=== PATIENT | male | born 1990 | race Caucasian/White ===

== ENCOUNTER 2017-07-21 18:15 | Emergency (ER) | payer MEDICAID ==
[~2017-07-21] VITALS: Ht 172.7 cm; Wt 86.0 kg
[2017-07-21 18:20] VITALS: BP 142/88
[2017-07-21] MEDS ORDERED: DEXAMETHASONE 4 MG TABLET PO ONE (19:00)
[2017-07-21] MEDS ORDERED: HYDROcodone/APAP 7.5-325MG/15ML UDC PO ONE (19:00)
[2017-07-21] MEDS ORDERED: ACETAMINOPHEN 500 MG TABLET PO ONE (19:00)
[2017-07-21] MEDS ORDERED: DEXAMETHASONE 4 MG/ML, 5ML ONE (19:12)
[2017-07-21] MEDS ORDERED: ACETAMINOPHEN 500 MG TABLET ONE (19:12)
== END 2017-07-21 19:21 | disposition home or self-care (01) ==
LOC: ED 19:00
DX: J02.0 Streptococcal pharyngitis (principal); H92.02 Otalgia, left ear
CPT/HCPCS: 99283

== ENCOUNTER 2018-06-16 22:09 | Emergency (ER) | payer MEDICAID ==
[~2018-06-16] VITALS: Ht 172.7 cm; Wt 69.1 kg
[2018-06-16 22:21] VITALS: BP 123/70
== END 2018-06-16 22:47 | disposition left against medical advice (07) ==
LOC: ED 22:42
DX: R68.89 Other general symptoms and signs (principal); Z53.21 Procedure and treatment not carried out due to patient leaving prior to being seen by health care provider

== ENCOUNTER 2019-04-28 22:40 | Emergency (ER) | payer MEDICAID ==
[~2019-04-28] VITALS: Ht 172.7 cm; Wt 65.4 kg
[2019-04-28 22:42] VITALS: BP 136/91
[2019-04-28] MEDS ORDERED: DIPH,PERTUSS(ACELL),TET VAC/PF 0.5 ML IM-VACC ONE ×2 (23:21→23:30)
== END 2019-04-28 23:34 | disposition home or self-care (01) ==
LOC: ED 23:19
DX: S80.811A Abrasion, right lower leg, initial encounter (principal); L03.115 Cellulitis of right lower limb; F41.1 Generalized anxiety disorder; F31.9 Bipolar disorder, unspecified; V19.9XXA Pedal cyclist (driver) (passenger) injured in unspecified traffic accident, initial encounter; Y93.89 Activity, other specified; Y92.410 Unspecified street and highway as the place of occurrence of the external cause; Y99.8 Other external cause status
CPT/HCPCS: 90471; 90715; 99283

== ENCOUNTER 2019-09-21 23:19 | Emergency (ER) | payer MEDICAID ==
[~2019-09-21] VITALS: Ht 172.7 cm; Wt 68.1 kg
--- NOTE | 2019-09-21 23:50 | NUR ---
PT C/O RIGHT ARM ABCESS, REPORTS SKIN POPPING METH X2 DAYS AGO. PT HAS MULTIPLE SKIN POPPING SITES THAT ARE OPEN, RED, WARM AND TENDER TO TOUCH. PT DENIES ANY OTHER C/O AT THIS TIME. PT PLACED ON MONITORING, CALL LIGHT WITHIN REACH, ALL SAFETY MEASURES IN PLACE.
[2019-09-22] MEDS ORDERED: IBUPROFEN 600 MG TABLET PO ONE
[2019-09-22] MEDS ORDERED: OXYcodone/APAP 5/325MG TABLET PO ONE
[2019-09-22] MEDS ORDERED: CLINDAMYCIN 300 MG CAPSULE PO ONE
[2019-09-22] MEDS ORDERED: LIDOCAINE 2%, 20ML SQ ONE
[2019-09-22] MEDS ORDERED: CLINDAMYCIN 300 MG CAPSULE ONE (00:01)
[2019-09-22] MEDS ORDERED: OXYcodone/APAP 5/325MG TABLET ONE (00:01)
[2019-09-22] MEDS ORDERED: IBUPROFEN 600 MG TABLET ONE (00:01)
--- NOTE | 2019-09-22 00:18 | NUR ---
PT PROVIDED CRACKERS AND JUICE UPON REQUEST.
--- NOTE | 2019-09-22 00:42 | NUR ---
ERP IN ROOOM APPLYING LIDOCAINE AT THIS TIME. PT TOLERATING WELL. VSS.
--- NOTE | 2019-09-22 01:07 | NUR ---
I&D COMPLETED BY DR. ARNOLD. PT TOLERATED WELL. X2 WOUNDS ON R ARM PACKED WITH STERILE GAUZE PACKING. PT EDUCATED TO RETURN TO ED TO HAVE PACKING REMOVED. PT EDUCATED TO NO LONGER USE METH. PT VERBALIZED UNDERSTANDING.
[2019-09-22 01:50] VITALS: BP 116/78
== END 2019-09-22 01:53 | disposition home or self-care (01) ==
LOC: ED 09-22 00:50
DX: L02.413 Cutaneous abscess of right upper limb (principal); F11.20 Opioid dependence, uncomplicated; F15.20 Other stimulant dependence, uncomplicated; F17.210 Nicotine dependence, cigarettes, uncomplicated; Z72.89 Other problems related to lifestyle
CPT/HCPCS: 10061; 99284; 99406

== ENCOUNTER 2020-05-06 23:10 | Emergency (ER) | payer MEDICAID ==
[~2020-05-06] VITALS: Ht 172.7 cm; Wt 70.8 kg
[2020-05-06 23:28] VITALS: BP 141/82
[2020-05-06] MEDS ORDERED: LORazepam 1MG TABLET PO ONE (23:30)
[2020-05-07] MEDS ORDERED: LORazepam 1MG TABLET ONE (00:17)
[2020-05-07] MEDS ORDERED: HALOPERIDOL 5 MG/ML ONE (00:17)
[2020-05-07] MEDS ORDERED: HALOPERIDOL 5 MG/ML IM ONE (00:30)
== END 2020-05-07 00:33 | disposition home or self-care (01) ==
LOC: ED 05-07 00:01
DX: F15.129 Other stimulant abuse with intoxication, unspecified (principal); F11.129 Opioid abuse with intoxication, unspecified; F41.9 Anxiety disorder, unspecified; F17.200 Nicotine dependence, unspecified, uncomplicated; Z72.9 Problem related to lifestyle, unspecified
CPT/HCPCS: 99283

== ENCOUNTER 2020-05-28 22:42 | Emergency (ER) | payer MEDICAID ==
[~2020-05-28] VITALS: Ht 172.7 cm; Wt 64.8 kg
[2020-05-28 22:52] VITALS: BP 126/84
--- NOTE | 2020-05-28 23:42 | NUR ---
called pt, not in lobby
--- NOTE | 2020-05-29 00:04 | NUR ---
called pt, not in lobby
--- NOTE | 2020-05-29 00:36 | NUR ---
not in lobby, lwbs
== END 2020-05-29 02:20 | disposition left against medical advice (07) ==
LOC: ED 23:50
DX: L98.8 Other specified disorders of the skin and subcutaneous tissue (principal); Z53.21 Procedure and treatment not carried out due to patient leaving prior to being seen by health care provider

== ENCOUNTER 2020-06-17 02:45 | Emergency (ER) | payer MEDICAID ==
[~2020-06-17] VITALS: Ht 172.7 cm; Wt 65.0 kg
--- NOTE | 2020-06-17 03:16 | NUR ---
First pt contact: pt states that he came in today for the bugs crawling on his skin.pt sitting up on guney, NAD, VSS, pt reports using meth and heroin earlier today prior to coming into ED. sensation and CMS intact. wctm.
[2020-06-17 04:14] VITALS: BP 130/87
--- NOTE | 2020-06-17 04:15 | NUR ---
Patient given discharge instructions and they have confirmed that they understand the instructions. Patient ambulatory with steady gait. denies additional questions at this time. given crackers and juice at dc. no belongings left in room after dc. NAD, VSS
== END 2020-06-17 04:16 | disposition home or self-care (01) ==
LOC: ED 03:09
DX: L24.9 Irritant contact dermatitis, unspecified cause (principal); F15.20 Other stimulant dependence, uncomplicated; F22 Delusional disorders; Z86.19 Personal history of other infectious and parasitic diseases
CPT/HCPCS: 99283

== ENCOUNTER 2021-01-30 00:50 | Emergency (ER) | payer MEDICAID ==
[~2021-01-30] VITALS: Ht 172.7 cm; Wt 58.3 kg
[2021-01-30 01:05] VITALS: BP 116/72
== END 2021-01-30 01:43 | disposition home or self-care (01) ==
LOC: ED 01:28
DX: B86 Scabies (principal)
CPT/HCPCS: 99283